=== PATIENT | male | born 1945 | race Caucasian/White ===

== ENCOUNTER 2019-04-19 12:12 | Emergency (ER) | payer OTHER ==
[~2019-04-19] VITALS: Ht 177.8 cm; Wt 68.0 kg
[2019-04-19] MEDS ORDERED: ACETAMINOPHEN 325MG TABLET PO ONE (13:30)
[2019-04-19] MEDS ORDERED: LIDOCAINE HCL 1% 20ML VIAL (Pyxis) INJ INFIL ONE (13:30)
[2019-04-19] MEDS ORDERED: AMOXICILLIN/POTASSIUM CLAVULANATE 875/125MG TAB PO ONE (17:00)
[2019-04-19] MEDS ORDERED: HYDROCODONE/ACETAMINOPHEN 5/325MG TABLET PO STA (17:43)
[2019-04-19 18:27] VITALS: BP 133/68
== END 2019-04-19 18:30 | disposition home or self-care (01) ==
LOC: ER 13:12
DX: S62.630B Displaced fracture of distal phalanx of right index finger, initial encounter for open fracture (principal); W26.8XXA Contact with other sharp object(s), not elsewhere classified, initial encounter; Y93.89 Activity, other specified; Y92.89 Other specified places as the place of occurrence of the external cause; Y99.8 Other external cause status
CPT/HCPCS: 29130; 73140; 99284; J3490